=== PATIENT | female | born 1950 | race Caucasian/White ===

== ENCOUNTER → 2019-05-08 11:50 | Outpatient (CLI) | payer MEDICARE, OTHER, SELFPAY ==
--- NOTE | 2019-05-08 | DI.CT.S_ITS ---
PROCEDURE: CT CHEST W CON INDICATIONS: Dysphonia TECHNIQUE: After the administration of intravenous contrast, 5 mm thick sections acquired from the pulmonary apices to the posterior costophrenic angles. 1 mm axial lung, 5 mm thick coronal and sagittal reformats and 7 mm axial MIP were acquired. For radiation dose reduction, the following was used: automated exposure control, adjustment of mA and/or kV according to patient size. COMPARISON: None. FINDINGS: Image quality: Excellent. Lungs and pleura: No acute air space opacities. There is mild lung scarring at the right lower lobe in this patient who has undergone prior thoracotomy and rib resection in that area, posteriorly, with what appears to be a reconstructive mesh graft that is partially calcified in that area. No pleural effusions or pneumothorax. Central and peripheral airways are patent and normal in caliber. Mediastinum: Heart size is normal. No pericardial effusion. No mediastinal or hilar adenopathy by size criteria. Thoracic aorta and central pulmonary arteries are normal in size. Esophagus is normal in caliber. No hiatal hernia. Bones and chest wall: No suspicious bony lesions. No vertebral body compression fractures. No axillary or supraclavicular adenopathy by size criteria. Thyroid gland is not seen but no mass in the area of the thyroid is found.. Abdomen: Visualized upper abdominal solid organs appear normal. Upper abdominal bowel loops are normal in caliber. Surgical clips indicate prior cholecystectomy. IMPRESSION: Through the visualized mediastinum no mass is found. Prior right lower chest thoracotomy with multilevel rib resection, and with what appears to be a chest wall mesh graft through that area showing partial linear calcifications. Overall a source of current symptomatology is not seen. Dictated by: Florentino Romero M.D. on 05/08/2019 at 12:50 Approved by: Florentino Romero M.D. on 05/08/2019 at 12:54
--- NOTE | 2019-05-08 | DI.CT.S_ITS ---
PROCEDURE: CT SOFT TISSUE NECK W CON INDICATIONS: Dysphonia TECHNIQUE: After the administration of intravenous contrast, 3.0 mm axial sections acquired from the sella to the aortic arch. Additional oblique axial 3.0 mm sections acquired through the pharynx. 3 mm thick coronal and sagittal reformats were generated. For radiation dose reduction, the following was used: automated exposure control. COMPARISON: [facility], CT, CT CHEST W CON, 05/08/2019, 11:53. FINDINGS: Image quality: Excellent. Lymph nodes: No enlarged lymph nodes seen throughout the neck. Vessels: Visualized vasculature appears patent. Neck spaces: The oropharynx, nasopharynx, and pharynx demonstrate no mucosal lesions. The vocal cords, false vocal cords, pyriform sinuses, epiglottis, vallecula, and tongue base all appear normal. Extramucosal spaces appear unremarkable. Glands: The parotid and submandibular glands appear normal. Thyroid gland is not well-seen. Miscellaneous: Visualized brain and orbits appear normal. Lung apices appear clear. Superficial soft tissues appear normal. Bones: No suspicious bony lesions. Visualized sinuses and mastoids appear unremarkable. IMPRESSION: Normal examination, source of current symptoms is not found. Dictated by: Florentino Romero M.D. on 05/08/2019 at 13:37 Approved by: Florentino Romero M.D. on 05/08/2019 at 13:38
== END ==
PROVIDERS: PCP Physician Assistant Medical; Referring Provider Physician Assistant Medical; Visit Provider Otolaryngology
DX: R49.0 Dysphonia (principal)
CPT/HCPCS: 70491; 71260

== ENCOUNTER → 2019-05-22 09:10 | Outpatient (CLI) | payer MEDICARE, OTHER, SELFPAY ==
--- NOTE | 2019-05-22 | DI.MRI.S_ITS ---
PROCEDURE: MR ORBITS FACE NECK WO/W CON INDICATIONS: Dysphonia TECHNIQUE: Noncontrast sagittal T1 spin echo, axial FLAIR, axial gradient echo, axial diffusion and ADC acquired through the brain. Coronal STIR, thin-slice axial T1 spin echo through the orbits. After the administration of contrast, thin-slice axial and coronal T1 spin echo with fat saturation through the orbits, axial T1 spin echo with fat saturation through the brain. COMPARISON: [facility], MR, MR HEAD/BRAIN WO/W CON, 05/22/2019, 9:41. FINDINGS: Image quality: Excellent. Orbits: Globes are symmetrical. The optic nerves are normal in size, without abnormal signal or enhancement. No retrobulbar masses or fat abnormalities. The extra-ocular muscles are normal and symmetric in appearance. Lacrimal glands are normal. Optic chiasm is normal. Periorbital soft tissues appear normal. CSF spaces: Ventricles are normal in size and shape. Basal cisterns are patent. No extra-axial fluid collections. Brain: No intracranial bleeds or mass effects. No abnormal intracranial enhancement. Hall-white matter interface is intact. Diffusion weighted images demonstrate no acute ischemic insults. Pituitary gland appears normal, without sellar or suprasellar masses. Brainstem appears normal. Normal intravascular flow voids are present. Skull and face: Calvarial marrow is normal in signal. Sinuses: Sinuses and mastoids are clear. On image 24/11, at about the level of the pyriform sinuses, there is asymmetric left-sided partial effacement of the supraglottic airway, although this would be much better characterized with CT as clinically necessary. IMPRESSION: Asymmetric partial effacement of the left supraglottic airway. Technically, mucosal lesion cannot be excluded including neoplastic possibilities. Recommend further evaluation with contrast-enhanced CT neck, or if clinically indicated direct visualization and ENT clinical management. Dictated by: Gustavo Ross M.D. on 05/22/2019 at 13:13 Approved by: Gustavo Ross M.D. on 05/22/2019 at 13:23
--- NOTE | 2019-05-22 | DI.MRI.S_ITS ---
PROCEDURE: MR HEAD/BRAIN WO/W CON INDICATIONS: Dysphonia TECHNIQUE: Noncontrast axial T1 spin echo, axial T2 fast spin echo, sagittal and axial FLAIR, coronal T2 fast spin echo, axial gradient echo, axial diffusion and ADC through the brain. After the administration of contrast, axial and coronal T1 spin echo with fat saturation through the brain. COMPARISON: None. FINDINGS: Image quality: Excellent. CSF spaces: Basal cisterns are patent. No extra-axial fluid collections. Ventricles are normal in size and shape. Brain: No midline shift. No intracranial bleeds or masses. No abnormal intracranial enhancement. There is cerebral volume loss for age. There is periventricular white matter chronic small vessel ischemic change. The brainstem appears normal. Diffusion-weighted images demonstrate no acute ischemic insults. No chronic ischemic insults. Normal intravascular flow voids are present. Skull and face: Calvarial marrow is normal in signal. Orbits appear normal. Sinuses: Sinuses and mastoids appear clear. IMPRESSION: No evidence of acute ischemia. No acute intracranial signal abnormality or enhancement. Dictated by: Gustavo Ross M.D. on 05/22/2019 at 11:51 Approved by: Gustavo Ross M.D. on 05/22/2019 at 11:57
== END ==
PROVIDERS: PCP Physician Assistant Medical; Referring Provider Physician Assistant Medical; Visit Provider Otolaryngology
DX: R49.0 Dysphonia (principal)
CPT/HCPCS: 70543; 70553; A9579

== ENCOUNTER → 2019-07-21 08:33 | Outpatient (CLI) | payer MEDICARE, OTHER, SELFPAY ==
[2019-07-22 06:13] LABS: COVID19 Sendout Not Detected (Not Detect)
== END ==
PROVIDERS: PCP Physician Assistant Medical; Visit Provider Physician Assistant
DX: Z01.812 Encounter for preprocedural laboratory examination (principal)
CPT/HCPCS: 87635

== ENCOUNTER → 2022-02-03 10:35 | Outpatient (CLI) | payer MEDICARE, OTHER, SELFPAY ==
--- NOTE | 2022-02-03 | DI.RAD.S_ITS ---
PROCEDURE: FL FLUOROSCOPY >1HR COMPARISON: [facility], CT, CT CHEST W CON, 05/08/2019, 11:53. INDICATIONS: ELEVATED DIAPHRAGM FINDINGS: No paradoxical motion of the hemidiaphragms. The movement of the right hemidiaphragm is minimally diminished compared to the left. This is seen with inspiration and respiration as well as the sniff test. This could be postsurgical in nature. No diaphragmatic hernia is identified. IMPRESSION: No paradoxical motion of the hemidiaphragms. Minimal decreased motion of the right hemidiaphragm compared to the left. No diaphragmatic hernia is seen. Dictated by: Brendan Sheppard M.D. on 02/03/2022 at 20:27 Approved by: Brendan Sheppard M.D. on 02/03/2022 at 20:33
== END ==
PROVIDERS: PCP Physician Assistant Medical; Referring Provider Family Medicine; Visit Provider Family Medicine
DX: J98.6 Disorders of diaphragm (principal)
CPT/HCPCS: 76000